=== PATIENT | male | born 1960 | race Caucasian/White ===

== ENCOUNTER 2021-02-12 04:49 | Observation (INO) ==
--- NOTE | 2021-01-10 13:52 | PAT Medication Instructions ---
Medication Instructions Date of Service January 10, 2021 Home Medications cholecalciferol (vitamin D3) [Vitamin D3] 50 mcg PO QAM magnesium oxide 400 mg PO QAM oxycodone-acetaminophen [Percocet] 2 tab PO TID pantoprazole 40 mg PO QAM tamsulosin [Flomax] 0.4 mg PO QAM warfarin [Coumadin] 5 mg PO UD ASK your prescriber and surgeon warfarin [Coumadin] 5 mg PO UD DO NOT take the morning of surgery cholecalciferol (vitamin D3) [Vitamin D3] 50 mcg PO QAM magnesium oxide 400 mg PO QAM Take morning of surgery With a small sip of water, OTHERWISE NOTHING TO EAT OR DRINK AFTER MIDNIGHT: pantoprazole 40 mg PO QAM tamsulosin [Flomax] 0.4 mg PO QAM oxycodone-acetaminophen [Percocet] 2 tab PO TID (okay to take up to 4 hours prior to surgery if needed) Take evening before surgery oxycodone-acetaminophen [Percocet] 2 tab PO TID Other Notes If you have any questions please call us at [phone] or [phone] or [phone] or [phone]
--- NOTE | 2021-01-14 12:22 | Anesthesiology Consultation ---
Date of Service January 14, 2021 Assessment & Plan (1) Encounter for pre-operative examination: COVID Status: As of 01/14 assessment, patient denies travel to endemic area, known exposure/sick contacts, or symptoms of COVID19. Patient instructed that they and their household members must follow strict social distancing guidelines, wear a mask in public and avoid travel/events/gatherings for 14 days prior to surgery. Preoperative COVID19 testing to be completed prior to surgery per surgeon's arrangements. Patient made aware to self-isolate as much as possible between COVID testing and surgery. Patient very skeptical of/nervous about SAB. Does have fusion of L3-L5, so may be difficult spinal. Discussed SAB vs GA. Will discuss further with MDA AM DOS. PT/INR/PT AM DOS Chart Review Chart Review: Acceptable Risk for Surgery and Patient seen in Pre Admission Testing Teaching & Discussion Instructed NPO after midnight before surgery, except medications with 15 cc of water. Medication instructions provided according to the PAT guidelines. Pt to contact PCP for coumadin instructions. History Surgery Operation Date: 02/12/21 14:15 Proposed Procedures p Left Total Knee Arthroplasty - Frank Cartagena DO Height/Weight Height: 5 ft 8.5 in Weight: 97.4 kg Allergies Allergy/AdvReac Type Severity Reaction Status Date / Time No Known Allergies Allergy Verified 01/09/21 09:19 Medications Home Medications Medication Instructions Recorded Confirmed Last Taken cholecalciferol (vitamin D3) 50 mcg PO QAM 01/09/21 01/09/21 Unknown [Vitamin D3] magnesium oxide 400 mg PO QAM 01/09/21 01/09/21 Unknown oxycodone-acetaminophen [Percocet] 2 tab PO TID 01/09/21 01/09/21 Unknown pantoprazole 40 mg PO QAM 01/09/21 01/09/21 Unknown tamsulosin [Flomax] 0.4 mg PO QAM 01/09/21 01/09/21 Unknown warfarin [Coumadin] 5 mg PO UD 01/09/21 01/09/21 Unknown Past Medical History Medical History (Updated 01/15/21 @ 11:34 by Carlos Kee) Antiphospholipid syndrome Anticoagulated with coumadin, dx'd at [facility]. Anxiety BPH (benign prostatic hyperplasia) Chronic obstructive pulmonary disease No inhaler use Degenerative disc disease GERD (gastroesophageal reflux disease) Hx of deep venous thrombosis LAST EPISODE "MANY YEARS AGO">DX WITH CLOTTING DISORDER Osteoarthritis Exercise / Class Metabolic Activity II 4-5 Yardwork/Stairs/Walk up hill (DENIES CP OR SOB WITH 1 FOS) Past Family History Family History Mother Family history of diabetes mellitus Father Family history of diabetes mellitus Brother Family history of diabetes mellitus Other No family history of adverse response to anesthesia Past Surgical History Surgical History Fusion of spine LUMBAR, L3-L5. H/O vascular surgery STENTS PLACED RT LEG YEARS AGO ([facility]) History of arthroscopy RT/LEFT KNEE *MULTIPLE TIMES History of cardiac cath OVER 20 YEARS AGO (NO STENTS) History of carpal tunnel release RT/LEFT History of colonoscopy History of esophagogastroduodenoscopy (EGD) History of nasal septoplasty History of tooth extraction History of total knee replacement RT Hx of shoulder surgery RT/LEFT S/P trigger finger release Past Anesthesia History No Hx of Anesthesia Complications and No Family Hx of Anesthesia Complications History of PONV No Hx of PONV and No Hx of Motion Sickness Social History Smoking Status: Current every day smoker tobacco type: cigarettes Smoking cigarettes per day: 20 CIG DAILY Do You Dip or Chew Tobacco: No Hx Alcohol Use: No Hx Substance Use: No substance use type: does not use Review of Systems Pt denies any recent chest pain, shortness of breath, palpitations, cough, fever, URI, or uncontrolled acid reflux (rare, diet-dependent). Physical Exam Vital Signs BP: 122/86 P: 92bpm SPO2: 97% RA T: 98.0 F R: 16 ENMT Mouth: + dentures (upper partial) and + dental restorations (gold crowns on all bottom teeth); no chipped teeth and no loose teeth Thyromental Distance: > or= 3.5 Finger Breadths Mallampati Class: II Neck normal visual inspection; neck extension not limited Respiratory normal respiratory effort Auscultation: + wheezes (B/L diffuse) Cardiovascular RRR, no murmur, no edema Vessels: no carotid bruit Testing Laboratory Results 01/14/21 12:45 01/14/21 12:45 PT 34.0 Seconds (9.0-12.0) H 01/14/21 12:45 INR 3.7 (0.9-1.1) H 01/14/21 12:45 APTT 45.9 Seconds (21.0-31.0) H* 01/14/21 12:45 Hemoglobin A1c 6.0 % (4.5-5.6) H 01/14/21 12:45 Urine Color Yellow 01/14/21 12:45 Urine Appearance Clear (Clear) 01/14/21 12:45 Urine pH 6.5 (4.5-7.5) 01/14/21 12:45 Ur Specific [place] 1.015 (1.000-1.030) 01/14/21 12:45 Urine Protein Negative (Negative) 01/14/21 12:45 Urine Glucose (UA) Negative (Negative) 01/14/21 12:45 Urine Ketones Negative (Negative) 01/14/21 12:45 Urine Nitrite Negative (Negative) 01/14/21 12:45 Ur Leukocyte Esterase Negative (Negative) 01/14/21 12:45 Urine WBC (Auto) 0 /hpf (0-5) 01/14/21 12:45 Urine RBC (Auto) 10-30 /hpf (0-4) H 01/14/21 12:45 U Hyaline Cast (Auto) 0 /lpf (0-5) 01/14/21 12:45 U Epithel Cells (Auto) 0-5 /lpf (0-5) 01/14/21 12:45 Urine Bacteria (Auto) Negative (Negative) 01/14/21 12:45 Blood Type AB Positive 01/14/21 12:45 Antibody Screen NEGATIVE 01/14/21 12:45 *Critical aPTT called to me from lab. PT/INR also supratherapeutic. PCP and surgeon's office notified. Electrocardiogram Date: 01/14/21 Sinus rhythm with sinus arrhythmia at 72 bpm. Incomplete right bundle branch block. *unconfirmed Chest X-Ray Date: 01/14/21 Findings: + NAD
--- NOTE | 2021-01-14 13:32 | XRay Report ---
XR chest Pre-admission PA/Lat CLINICAL HISTORY: Preoperative chest COMPARISON STUDY: No previous studies for comparison. FINDINGS: The cardiac and mediastinal contours are normal. There is no evidence of focal pulmonary co nsolidation. There is no evidence of failure. No pleural effusions are visualized.[ IMPRESSION: No active disease in the chest. ACT 112: Negative or not required by law. Electronically signed by: Ian Pfeiffer M.D. 01/14/2021 1:30 PM
[2021-01-14 15:00] LABS: Basophils # (auto) 0.02 K/uL (0-0.2); Basophils % (auto) 0.3 %; Eosinophils # (auto) 0.05 K/uL (0-0.5); Eosinophils % (auto) 0.8 %; Hematocrit (blood only) 44.1 % (42-52); Hemoglobin 14.5 g/dL (14.0-18.0); Lymphocytes # (auto) 1.12 K/uL (1.2-3.4); Lymphocytes % (auto) 18.1 %; Mean Corpuscular Hemoglobin 31.4 pg (25-34); Mean Corpuscular Hgb Conc 32.9 g/dL (32-36); Mean Corpuscular Volume 95.5 fL (80-100); Mean Platelet Volume 10.1 fL (7.4-10.4); Monocytes # (auto) 0.34 K/uL (0.11-0.59); Monocytes % (auto) 5.5 %; Neutrophils # (auto) 4.66 K/uL (1.4-6.5); Neutrophils % (auto) 75.3 %; Platelet Count 333 K/uL (130-400); RDW Coefficient of Variation 13.9 % (11.5-14.5); RDW Standard Deviation 48.4 fL (36.4-46.3); Red Blood Count 4.62 M/uL (4.7-6.1); White Blood Count 6.19 K/uL (4.8-10.8)
[2021-01-14 15:05] LABS: Appearance Urine Clear (Clear); Bacteria Urine Automated Negative (Negative); Bilirubin Urine Negative (Negative); Blood Urine 2+ (Negative); Cast Urine Automated 0 /lpf (0-5); Color Urine Yellow; Epithelial Cell Urine Auto 0-5 /lpf (0-5); Glucose Urine UA Negative (Negative); Ketones Urine Negative (Negative); Leukocyte Esterase Urine Negative (Negative); Nitrite Urine Negative (Negative); Protein Urine Negative (Negative); Specific Gravity Urine 1.015 (1.000-1.030); Urobilinogen Urine Negative (Negative); WBC Urine Automated 0 /hpf (0-5); pH Urine 6.5 (4.5-7.5)
[2021-01-14 15:07] LABS: Albumin Level 4.1 gm/dl (3.4-5.0); Calcium 9.4 mg/dl (8.5-10.1); Creatinine Clr Calc Pharmacy 82.8 ml/min; Est GFR (African American) 84.4; Est GFR (Non-African American) 72.8; Potassium 4.1 mmol/L (3.5-5.1)
[2021-01-14 15:34] LABS: INR 3.7 (0.9-1.1); Partial Thromboplastin Ratio 1.7
[2021-01-14 15:49] LABS: Partial Thromboplastin Time 45.9 Seconds (21.0-31.0)
[2021-01-15 07:11] LABS: Estimated Average Glucose 126 mg/dl
--- NOTE | 2021-01-15 23:04 | Electrocardiogram Report ---
Test Reason : Blood Pressure : / mmHG Vent. Rate : 072 BPM Atrial Rate : 072 BPM P-R Int : 128 ms QRS Dur : 102 ms QT Int : 378 ms P-R-T Axes : 069 084 070 degrees QTc Int : 413 ms Normal sinus rhythm with sinus arrhythmia Incomplete right bundle branch block Nonspecific ST abnormality No previous ECGs available Confirmed by Ryley Jasmine ([id number]) on 01/15/2021 11:03:54 PM Referred By: Frank Cartagena Confirmed By:Ryley Jasmine
--- NOTE | 2021-01-18 11:22 | History & Physical Report ---
Date of Service January 18, 2021 Date of Surgery: 02/12/21 Procedure: Left Total Knee Arthroplasty Assessment & Plan (1) Arthritis of knee, left: Further care discussed with patient and at this point in time has failed conservative measures and would like to proceed with a left total knee repl acement. Plan on discharge will be home with home health physical therapy. DVT prophalaxis with TEDs, SCDs and will also resume his Coumadin postop. Patient will have follow up appointment in our office two weeks post op for staple/suture removal and re-evaluation. Patient otherwise has no other questions or concerns. The risks and benefits have been discussed including, but not limited to, risk of infection, nerve injury, stiffness, loss of motion, failure to improve, etc. Reasonable outcomes and options of treatment were discussed. An explanation of appropriate alternatives to the procedure that may be advantageous were discussed and their risks and benefits, as well as the risks and benefits of not proceeding with treatment. I offered to answer any additional inquiries concerning the treatment involved. All the patient's questions were answered. The patient is agreeable, understanding of the treatment plan and alternatives, and wishes to proceed with the treatment plan. History of Present Illness Chief Complaint: left knee pain Primary Care Provider: Kameron Christianson Gaby Marques is a 60 year old male that complains of left knee pain, presents for pre-op evaluation prior to a left total knee replacement by Dr Cartagena at [facility]. He complains of pain, decreased range of motion and stiffness in his left knee. Currently the patient states that the symptoms are moderate-severe and is rated as 6/10. The pain is described as aching, sharp and throbbing. His symptoms are aggravated by ascending stairs, daily activities, first steps while awake walking. He is unable to take NSAIDs due to Coumadin use. he had prior left knee scope with partial meniscectomy approximately 6 years ago. Allergies Allergy/AdvReac Type Severity Reaction Status Date / Time No Known Allergies Allergy Verified 01/09/21 09:19 Home Medications Medication Instructions Recorded Confirmed Type cholecalciferol (vitamin D3) 50 mcg PO QAM 01/09/21 01/09/21 History [Vitamin D3] magnesium oxide 400 mg PO QAM 01/09/21 01/09/21 History oxycodone-acetaminophen [Percocet] 2 tab PO TID 01/09/21 01/09/21 History pantoprazole 40 mg PO QAM 01/09/21 01/09/21 History tamsulosin [Flomax] 0.4 mg PO QAM 01/09/21 01/09/21 History warfarin [Coumadin] 5 mg PO UD 01/09/21 01/09/21 History Past Med/Surg History Medical History Antiphospholipid syndrome Anticoagulated with coumadin, dx'd at [facility]. Anxiety BPH (benign prostatic hyperplasia) Chronic obstructive pulmonary disease No inhaler use Degenerative disc disease GERD (gastroesophageal reflux disease) Hx of deep venous thrombosis LAST EPISODE "MANY YEARS AGO">DX WITH CLOTTING DISORDER Osteoarthritis Surgical History Fusion of spine LUMBAR, L3-L5. H/O vascular surgery STENTS PLACED RT LEG YEARS AGO ([facility]) History of arthroscopy RT/LEFT KNEE *MULTIPLE TIMES History of cardiac cath OVER 20 YEARS AGO (NO STENTS) History of carpal tunnel release RT/LEFT History of colonoscopy History of esophagogastroduodenoscopy (EGD) History of nasal septoplasty History of tooth extraction History of total knee replacement RT Hx of shoulder surgery RT/LEFT S/P trigger finger release Family History Mother Family history of diabetes mellitus Father Family history of diabetes mellitus Brother Family history of diabetes mellitus Other No family history of adverse response to anesthesia Social History Smoking Status: Current every day smoker Cigarettes Per Day: 20 CIG DAILY; Second Hand Exposure: Yes; Do You Dip or Chew Tobacco: No; Tobacco Cessation Education Requested by Patient: No Hx Alcohol Use: No Hx Substance Use: No Preferred Language: Armenian Respiratory Director Required: No Beliefs That Will Affect Care: None Current Living Situation: Alone Feels Safe at Home: Yes Safety Concerns: Feels Safe At This Time Assistive Devices: Brace/Splint/Immobilizer, Cane and Glasses Assistive Devices Comment: READING GLASSES, PARTIAL UPPER PLATE Review of Systems Review of Systems: All systems reviewed & are unremarkable except as noted in HPI & below Constitutional: no fever, no chills and no sweats Respiratory: no cough and no dyspnea Cardiovascular: no chest pain, no dyspnea and no orthopnea Gastrointestinal: no abdominal pain, no nausea and no vomiting Musculoskeletal: as per Subjective / HPI Physical Exam Physical Exam: HT: 5ft 8in WT: 97.4kg Constitutional: WD/WN, vitals as above no acute distress Respiratory: normal respiratory effort, lungs clear to auscultation no respiratory distress, no labored breathing and does not use accessory muscles Cardiovascular: RRR, no murmur, no edema Gastrointestinal (Abdomen): normal bowel sounds, soft, nontender, no hepatosplenomegaly Musculoskeletal: Knee: + knee abnormal to inspection (Left Knee), + effusion (+1 effusion), + surgical incision (well healed portals), + limited ROM of knee (ROM 0/3/110), + knee ROM with crepitation, + joint line tenderness (medial joint line) and + Melvin's sign positive; no deformity, no skin erythema, no ecchymosis, no valgus laxity, no varus laxity, anterior drawer test negative, Galina's sign negative and pivot shift test negative Results & Data Results & Data ([facility]) Laboratory Results Laboratory Results WBC 6.19 K/uL (4.8-10.8) 01/14/21 12:45 RBC 4.62 M/uL (4.7-6.1) L 01/14/21 12:45 Hgb 14.5 g/dL (14.0-18.0) 01/14/21 12:45 Hct 44.1 % (42-52) 01/14/21 12:45 MCV 95.5 fL (80-100) 01/14/21 12:45 MCH 31.4 pg (25-34) 01/14/21 12:45 MCHC 32.9 g/dL (32-36) 01/14/21 12:45 RDW Std Deviation 48.4 fL (36.4-46.3) H 01/14/21 12:45 RDW Coeff of Malia 13.9 % (11.5-14.5) 01/14/21 12:45 Plt Count 333 K/uL (130-400) 01/14/21 12:45 MPV 10.1 fL (7.4-10.4) 01/14/21 12:45 Immature Gran % (Auto) 0.0 % 01/14/21 12:45 Neut % (Auto) 75.3 % 01/14/21 12:45 Lymph % (Auto) 18.1 % 01/14/21 12:45 Leslie % (Auto) 5.5 % 01/14/21 12:45 Eos % (Auto) 0.8 % 01/14/21 12:45 Baso % (Auto) 0.3 % 01/14/21 12:45 Neut # (Auto) 4.66 K/uL (1.4-6.5) 01/14/21 12:45 Lymph # (Auto) 1.12 K/uL (1.2-3.4) L 01/14/21 12:45 Leslie # (Auto) 0.34 K/uL (0.11-0.59) 01/14/21 12:45 Eos # (Auto) 0.05 K/uL (0-0.5) 01/14/21 12:45 Baso # (Auto) 0.02 K/uL (0-0.2) 01/14/21 12:45 Immature Gran # (Auto) 0.00 K/uL (0.00-0.02) 01/14/21 12:45 PT 34.0 Seconds (9.0-12.0) H 01/14/21 12:45 INR 3.7 (0.9-1.1) H 01/14/21 12:45 APTT 45.9 Seconds (21.0-31.0) H* 01/14/21 12:45 PTT Ratio 1.7 01/14/21 12:45 Sodium 140 mmol/L (136-145) 01/14/21 12:45 Potassium 4.1 mmol/L (3.5-5.1) 01/14/21 12:45 Chloride 105 mmol/L (98-107) 01/14/21 12:45 Carbon Dioxide 31 mmol/L (21-32) 01/14/21 12:45 Anion Gap 4.0 (3-11) 01/14/21 12:45 BUN 16 mg/dl (7-18) 01/14/21 12:45 Creatinine 1.11 mg/dl (0.6-1.4) 01/14/21 12:45 Est Cr Clr Drug Dosing 82.8 ml/min 01/14/21 12:45 Est GFR ( Amer) 84.4 01/14/21 12:45 Est GFR (Non-Af Amer) 72.8 01/14/21 12:45 BUN/Creatinine Ratio 14.0 (10-20) 01/14/21 12:45 Glucose 115 mg/dl (70-99) H 01/14/21 12:45 Estimat Average Glucose 126 mg/dl 01/14/21 12:45 Hemoglobin A1c 6.0 % (4.5-5.6) H 01/14/21 12:45 Calcium 9.4 mg/dl (8.5-10.1) 01/14/21 12:45 Albumin 4.1 gm/dl (3.4-5.0) 01/14/21 12:45 Urine Color Yellow 01/14/21 12:45 Urine Appearance Clear (Clear) 01/14/21 12:45 Urine pH 6.5 (4.5-7.5) 01/14/21 12:45 Ur Specific [place] 1.015 (1.000-1.030) 01/14/21 12:45 Urine Protein Negative (Negative) 01/14/21 12:45 Urine Glucose (UA) Negative (Negative) 01/14/21 12:45 Urine Ketones Negative (Negative) 01/14/21 12:45 Urine Blood 2+ (Negative) H 01/14/21 12:45 Urine Nitrite Negative (Negative) 01/14/21 12:45 Urine Bilirubin Negative (Negative) 01/14/21 12:45 Urine Urobilinogen Negative (Negative) 01/14/21 12:45 Ur Leukocyte Esterase Negative (Negative) 01/14/21 12:45 Urine WBC (Auto) 0 /hpf (0-5) 01/14/21 12:45 Urine RBC (Auto) 10-30 /hpf (0-4) H 01/14/21 12:45 U Hyaline Cast (Auto) 0 /lpf (0-5) 01/14/21 12:45 U Epithel Cells (Auto) 0-5 /lpf (0-5) 01/14/21 12:45 Urine Bacteria (Auto) Negative (Negative) 01/14/21 12:45 Blood Type AB Positive 01/14/21 12:45 Antibody Screen NEGATIVE 01/14/21 12:45 Impressions Chest X-Ray 01/14/21 08:25 XR chest Pre-admission PA/Lat CLINICAL HISTORY: Preoperative chest COMPARISON STUDY: No previous studies for comparison. FINDINGS: The cardiac and mediastinal contours are normal. There is no evidence of focal pulmonary consolidation. There is no evidence of failure. No pleural effusions are visualized.[ IMPRESSION: No active disease in the chest. ACT 112: Negative or not required by law. Electronically signed by: Ian Pfeiffer M.D. 01/14/2021 1:30 PM Diagnostic Findings Left Knee X-ray: left knee series confirm advanced degenerative changes to the left knee, greatest medial compartments and patellofemoral joint, showing joint space narrowing, osteophyte formation and subchondral sclerosis. no acute bony pathology noted.
[2021-02-12] MEDS ORDERED: ceFAZolin 2000MG 2,000 MG/15 ML SYR IV SCH (06:00)
[2021-02-12] MEDS ORDERED: TRANEXAMIC ACID 1,000 MG **IV Pre-op IV SCH (06:00)
[2021-02-12] MEDS ORDERED: dexAMETHasone 4 MG TAB PO SCH (06:00)
[2021-02-12] MEDS ORDERED: GABAPENTIN 600 MG DOSE PO SCH (06:00)
[2021-02-12] MEDS ORDERED: CeleBREX 200 MG CAP PO SCH (06:00)
[2021-02-12] MEDS ORDERED: ACETAMINOPHEN 500 MG TAB PO SCH (06:00)
[2021-02-12] MEDS ORDERED: TRANEXAMIC ACID 1,000 MG **IV Intra-op IV SCH (06:00)
[2021-02-12] MEDS ORDERED: LR 500ML BOLUS, THEN 15ML/HR IV SCH (06:00)
[2021-02-12] MEDS ORDERED: ROPIVACAINE 0.5% HCL/PF 150 MG, BUPIVACAINE 0.75% MPF 20 ML, EPINEPHrine 30MG/30ML (OR ... INSTIL SCH (06:00)
[2021-02-12] MEDS ORDERED: METOCLOPRAMIDE HCL 10 MG TABLET PO SCH (06:00)
[2021-02-12] MEDS ORDERED: FAMOTIDINE 20 MG TAB PO SCH (06:00)
[2021-02-12] MEDS ORDERED: BUPIVACAINE 0.25% 30 ML VIAL ONE (06:20)
[2021-02-12] MEDS ORDERED: BUPIVACAINE 0.5 % 5 MG/1 ML PF 10ML VIAL ONE ×2 (06:20→06:58)
[2021-02-12 06:23] LABS: INR 1.1 (0.9-1.1); Partial Thromboplastin Ratio 1.1; Partial Thromboplastin Time 27.7 Seconds (21.0-31.0); Prothrombin Time 10.9 Seconds (9.0-12.0)
[2021-02-12] MEDS ORDERED: LIDOCAINE 2%/EPINEPHRINE 1:200,000 20 ML SDV ONE (06:28)
[2021-02-12] MEDS ORDERED: PROPOFOL IV EMULSION 10 MG/ML 20 ML VIAL IV ONE ×2 (06:50→07:46)
[2021-02-12] MEDS ORDERED: LIDOCAINE 2% 2 ML VIAL/AMP(20MG/ML) INFIL ONE (06:50)
[2021-02-12] MEDS ORDERED: MIDAZOLAM HCL 1 MG/ML 2ML VIAL ONE ×3 (06:50→07:20)
[2021-02-12] MEDS ORDERED: ORTHO JOINT ANESTHETIC ONE (06:55)
[2021-02-12] MEDS ORDERED: ALBUT/IPRATROP 3MG/0.5MG NEB 3 ML VIAL NEB STA (07:06)
[2021-02-12] MEDS ORDERED: ATROPINE SULFATE 0.1 MG/ML 10ML SYR IV PRN (07:06)
[2021-02-12] MEDS ORDERED: ePHEDrine sulfate 50 MG/ML AMP IV PRN (07:06)
[2021-02-12] MEDS ORDERED: ONDANSETRON INJ 2 MG/ML 2 ML VIAL IV PRN ×2 (07:07→10:50)
[2021-02-12] MEDS ORDERED: fentaNYL citrate 100 MCG/2 ML VIAL IV PRN (07:07)
[2021-02-12] MEDS ORDERED: HYDROmorphone INJ 2 MG/ML SYR/VIAL IV PRN (07:07)
[2021-02-12] MEDS ORDERED: ALBUT/IPRATROP 3MG/0.5MG NEB 3 ML VIAL ONE (07:13)
[2021-02-12] MEDS ORDERED: ALBUTEROL HFA INHALER 8.5 GM ONE (07:14)
--- NOTE | 2021-02-12 07:23 | History & Physical Bridge Note ---
Date of Service February 12, 2021 History & Physical Bridge Note I have examined the patient, reviewed the History & Physical and in the interval since the performance of the History & Physical I have noted the following changes of clinical significance: no changes noted
--- NOTE | 2021-02-12 08:32 | Operative Report ---
Post Operative Report Pre & Post Diagnosis Operation Date: 02/12/21 07:15 Pre-Op Diagnosis: Unilateral Primary Osteoarthritis, Left Knee Post-Op Diagnosis: Unilateral Primary Osteoarthritis, Left Knee I identified the patient and participated in the time-out.: Yes Procedure Operation Date: 02/12/21 07:15 Actual Procedures p Left Total Knee Arthroplasty(Left) utilizing [employer] patient matched journey to total knee arthroplasty femur size 6 tibia size 4 polysize 13 patella size 32 oval patella- Frank Cartagena DO Surgeon Frank Cartagena DO [employer] Jair Estimated Blood Loss 5 Findings Consistent with Post-Op Diagnosis Patient presents with severe end-stage tricompartmental degenerative joint disease left knee varus alignment subchondral sclerosis marginal osteophytes [id number] eburnated bone moderate to large effusion Specimens Bone and cartilage Drains Medium bore Hemovac Anesthesia Type MAC Epidural Regional Complications none Disposition Accompanied Patient To Recovery: No Disposition: Recovery Room Indications Patient presents with severe end-stage tricompartmental degenerative joint disease [id number] eburnated bone failed attempted conservative management daily physical therapy anti-inflammatories relative rest activity modification corticosteroid injection viscosupplementation the above intraoperative findings noted time surgery. Description of Procedure After proper prepping and draping of the left lower extremity anterior midline incision was made over the region of the extensor extensor mechanism after meticulous hemostasis was obtained and maintained in subcutaneous tissues a medial parapatellar incision was made The patella was subluxed lateralward the medial lateral gutter were cleaned from any hypertrophic synovitis and scar tissue of the distal femoral block was placed and the distal femoral osteotomy cut was made subsequently the chamfers anterior and posterior osteotomy cuts were made utilizing the 4-in-1 block the tibia was subsequently subluxed anteriorward medial and ateral meniscal remnants were excised in their entirety remnants of the anterior and posterior cruciate ligaments were excised in their entirety excellent exposure of the proximal tibia was obtained the tibial osteotomy guide was placed on the proximal tibial osteotomy cut was made once again the knee was irrigated with copious amounts of sterile saline solution the patella was subsequently everted lateralward thickened scar tissue around the patella was removed the patella was subsequently cut utilizing a freehand technique and was drilled prepared for final preparation and placement of patella socially flexion-extension gaps were checked and the equal and symmetric trials were placed to the appropriate femoral and tibial trials with poly-spacer being placed for equal flexion and extension gaps and full range of motion including extension to 0 and flexion to 140 the trial components after having been taken to recovery range of motion was subsequently removed meticulous hemostasis was obtained and maintained subsequently a knee block injection of joint cocktail including ropivacaine 0.5% 150 mg. Bupivacaine 0.5% epinephrine 1-200,030 mL's toradol 30 mg dexamethasone 4 mg ketamine 10 mg clonidine 100 micrograms normal saline solution 30 mg was infiltrated into the soft tissues of the posterior knee medial lateral gutters and periosteal synovium special attention was paid to protect neurovascular structures at all times subsequently trial components having been removed the knee was irrigated with sterile saline solution. debris was removed the proximal tibia was subsequently prepared and was made ready for the placement of the tibial component tibial component was also cemented and tamped into position the femoral component was subsequently placed and cemented in the position the patellar component was subsequently cemented in position because hemostasis once again obtained and maintained wound having been thoroughly irrigated with debridement and debridement lavage was performed as well as a medial parapatellar incision closed with #1 Vicryl in interrupted fashion subcutaneous was closed with #2 Vicryl skin was closed with skin clips. PA-C was necessary for prepping and drapping as well as wound closure of deep fascia Sub cutaneous tissue and skin and was necessary for the case. A sterile compressive dressing was placed patient was taken to recovery in stable condition of report dictated by Osiel I attest to the content of the Intraoperative Record and any orders documented therein. Any exceptions are noted below. I attest to the content of the Intraoperative Record and any orders documented therein. Any exceptions are noted below.
--- NOTE | 2021-02-12 09:43 | XRay Report ---
XR knee LT 1 or 2V routine CLINICAL HISTORY: Postoperative evaluation. COMPARISON: None FINDINGS: Alignment of the total left knee arthroplasty is anatomic. No periprosthetic fracture or u nexpected radiopaque foreign body. There are surgical drains. IMPRESSION: Expected findings following total left knee arthroplasty. ACT 112: Negative or not required by law. Electronically signed by: Yonis Hedrick M.D. 02/12/2021 9:42 AM
[2021-02-12] MEDS ORDERED: bisacodyL 10 MG SUPP PR PRN (10:50)
[2021-02-12] MEDS ORDERED: NALOXONE HCL 0.4 MG/1 ML VIAL/CARP IV PRN (10:50)
[2021-02-12] MEDS ORDERED: diphenhydrAMINE Capsule 25 MG CAP PO PRN (10:50)
[2021-02-12] MEDS ORDERED: MAGNESIUM HYDROXIDE SUSP 30 ML UDC PO PRN (10:50)
[2021-02-12] MEDS ORDERED: METOCLOPRAMIDE HCL INJ 5 MG/ML 2 ML VIAL IV PRN (10:50)
--- NOTE | 2021-02-12 11:32 | Anesthesiology Progress Note ---
Date of Service February 12, 2021 Anesthesia Post Procedure Vital Signs Vital Signs: Temp Pulse Pulse Pulse Resp BP BP 02/12/21 11:18 77 19 105/69 02/12/21 10:40 36.7 C 70 18 96/69 L 02/12/21 10:05 36.4 C L 72 15 109/63 02/12/21 09:55 64 17 112/62 02/12/21 09:45 56 L 12 94/61 L 02/12/21 09:35 57 L 17 99/60 L 02/12/21 09:25 63 18 95/62 L 02/12/21 09:15 63 13 95/60 L 02/12/21 09:09 36.4 C L 73 15 95/59 L 02/12/21 05:26 36.7 C 71 20 142/81 H Pulse Ox 02/12/21 11:18 97 02/12/21 10:40 92 02/12/21 10:05 95 02/12/21 09:55 99 02/12/21 09:45 99 02/12/21 09:35 99 02/12/21 09:25 98 02/12/21 09:15 98 02/12/21 09:09 98 02/12/21 05:26 98 Pain Intensity Left Knee: Pain Intensity: 5 Transfer of Care Handoff Completed per policy Notes Mental Status: alert / awake / arousable and participated in evaluation Nausea / Vomiting: adequately controlled Pain: adequately controlled Airway Patency, RR, SpO2: stable & adequate BP & HR: stable & adequate Hydration State: stable & adequate Neuraxial Anesthesia: was administered and sensory block is resolving Anesthetic Complications: no major complications apparent and Pt Satisfied with anesthetic care
[2021-02-12] MEDS: SODIUM CHLORIDE 0.9% 1000ML 1,000 ML IV SCH ×2 (11:42→22:41)
[2021-02-12] MEDS: ACETAMINOPHEN 500 MG TAB PO SCH ×2 (13:40→21:07)
[2021-02-12] MEDS ORDERED: ORTHO WARFARIN NOMOGRAM SCH (14:00)
[2021-02-12] MEDS ORDERED: WARFARIN SOD 5 MG TAB PO ONE (16:00)
[2021-02-12] MEDS: ceFAZolin 2000MG 2,000 MG/15 ML SYR IV SCH ×2 (16:24→22:41)
[2021-02-12] MEDS ORDERED: SENNA 8.6 MG TAB PO SCH (21:00)
[2021-02-12] MEDS: DOCUSATE SODIUM 100 MG CAP PO SCH (21:07)
[2021-02-12] MEDS: oxyCODONE HCL IR 5 MG TAB (IMMEDIATE RELEASE) PO PRN (21:23)
[2021-02-12] MEDS: HYDROmorphone INJ 1 MG/ML SYRINGE IV PRN (22:44)
[2021-02-13] MEDS: oxyCODONE HCL IR 5 MG TAB (IMMEDIATE RELEASE) PO PRN ×2 (05:15→11:05)
[2021-02-13] MEDS: ACETAMINOPHEN 500 MG TAB PO SCH (05:15)
[2021-02-13] MEDS: HYDROmorphone INJ 1 MG/ML SYRINGE IV PRN (06:55)
[2021-02-13 07:40] LABS: Hematocrit (blood only) 32.7 % (42-52); Hemoglobin 10.6 g/dL (14.0-18.0); Mean Corpuscular Hemoglobin 30.8 pg (25-34); Mean Corpuscular Hgb Conc 32.4 g/dL (32-36); Mean Corpuscular Volume 95.1 fL (80-100); Mean Platelet Volume 9.6 fL (7.4-10.4); Platelet Count 190 K/uL (130-400); RDW Coefficient of Variation 13.9 % (11.5-14.5); RDW Standard Deviation 48.2 fL (36.4-46.3); Red Blood Count 3.44 M/uL (4.7-6.1); White Blood Count 14.32 K/uL (4.8-10.8)
[2021-02-13] MEDS: DOCUSATE SODIUM 100 MG CAP PO SCH ×2 (07:51→07:52)
[2021-02-13 08:19] LABS: BUN Creatinine Ratio 17.6 (10-20); Calcium 8.3 mg/dl (8.5-10.1); Creatinine Clr Calc Pharmacy 93.7 ml/min; Est GFR (African American) 100.6 ml/min; Est GFR (Non-African American) 86.8 ml/min; Potassium 4.5 mmol/L (3.5-5.1)
[2021-02-13] MEDS ORDERED: TAMSULOSIN HCL 0.4 MG CAP PO SCH (09:00)
[2021-02-13] MEDS ORDERED: CHOLECALCIFEROL 1,000 UNITS 25 MCG TAB PO SCH (09:00)
[2021-02-13] MEDS ORDERED: MULTIVITAMIN TAB PO SCH (09:00)
[2021-02-13] MEDS ORDERED: MAGNESIUM OXIDE 400 MG TAB PO SCH (09:00)
--- NOTE | 2021-02-13 09:41 | Orthopedic Progress Note ---
Date of Service February 13, 2021 Assessment & Plan (1) Arthritis of knee, left: POD 1 s/p L TKA PT/OT protocols. WBAT. DVT prophylaxis - Warfarin, SCD's, JIM's Pain management as written. Pt states he will be getting his pain medications from his Pain Management team once discharged. DC planning - Plan for services upon DC. Admission and Anticipated Discharge Date Admission Date: February 12, 2021 Subjective POD 1 Pt sitting up at bedside. No complaints this AM. States he is having some pain in the knee but it is much better than the arthritis pain he was having preop. Pt was ambulating in the room and had been up ambulating in the jarvis last night. Denies SOB, CP, LH. Pt is hoping to go home today. Physical Exam Physical Exam: Dressings C/D/I. Calves soft, NT. NV intact. Pt has good DF/PF of the left foot. HV drainage down to 75ml from previous shift. Results & Data ([facility]) Vital Signs (Past 12 Hours) Vital Signs Temp Pulse Resp BP Pulse Ox 02/13/21 07:04 36.5 C 67 16 112/70 96 02/13/21 03:11 36.7 C 79 20 98/64 L 96 02/12/21 22:50 36.6 C 93 H 20 104/67 94 Laboratory Results Laboratory Results WBC 14.32 K/uL (4.8-10.8) H 02/13/21 07:11 RBC 3.44 M/uL (4.7-6.1) L 02/13/21 07:11 Hgb 10.6 g/dL (14.0-18.0) L 02/13/21 07:11 Hct 32.7 % (42-52) L 02/13/21 07:11 MCV 95.1 fL (80-100) 02/13/21 07:11 MCH 30.8 pg (25-34) 02/13/21 07:11 MCHC 32.4 g/dL (32-36) 02/13/21 07:11 RDW Std Deviation 48.2 fL (36.4-46.3) H 02/13/21 07:11 RDW Coeff of Malia 13.9 % (11.5-14.5) 02/13/21 07:11 Plt Count 190 K/uL (130-400) 02/13/21 07:11 MPV 9.6 fL (7.4-10.4) 02/13/21 07:11 Immature Gran % (Auto) 0.0 % 01/14/21 12:45 Neut % (Auto) 75.3 % 01/14/21 12:45 Lymph % (Auto) 18.1 % 01/14/21 12:45 [place] % (Auto) 5.5 % 01/14/21 12:45 Eos % (Auto) 0.8 % 01/14/21 12:45 Baso % (Auto) 0.3 % 01/14/21 12:45 Neut # (Auto) 4.66 K/uL (1.4-6.5) 01/14/21 12:45 Lymph # (Auto) 1.12 K/uL (1.2-3.4) L 01/14/21 12:45 [place] # (Auto) 0.34 K/uL (0.11-0.59) 01/14/21 12:45 Eos # (Auto) 0.05 K/uL (0-0.5) 01/14/21 12:45 Baso # (Auto) 0.02 K/uL (0-0.2) 01/14/21 12:45 Immature Gran # (Auto) 0.00 K/uL (0.00-0.02) 01/14/21 12:45 PT 10.9 Seconds (9.0-12.0) 02/12/21 05:35 INR 1.1 (0.9-1.1) 02/12/21 05:35 APTT 27.7 Seconds (21.0-31.0) 02/12/21 05:35 PTT Ratio 1.1 02/12/21 05:35 Sodium 140 mmol/L (136-145) 02/13/21 07:11 Potassium 4.5 mmol/L (3.5-5.1) 02/13/21 07:11 Chloride 108 mmol/L (98-107) H 02/13/21 07:11 Carbon Dioxide 29 mmol/L (21-32) 02/13/21 07:11 Anion Gap 3.0 (3-11) 02/13/21 07:11 BUN 17 mg/dl (7-18) 02/13/21 07:11 Creatinine 0.96 mg/dl (0.6-1.4) 02/13/21 07:11 Est Cr Clr Drug Dosing 93.7 ml/min 02/13/21 07:11 Est GFR ( Amer) 100.6 ml/min 02/13/21 07:11 Est GFR (Non-Af Amer) 86.8 ml/min 02/13/21 07:11 BUN/Creatinine Ratio 17.6 (10-20) 02/13/21 07:11 Glucose 105 mg/dl (70-99) H 02/13/21 07:11 Estimat Average Glucose 126 mg/dl 01/14/21 12:45 Hemoglobin A1c 6.0 % (4.5-5.6) H 01/14/21 12:45 Calcium 8.3 mg/dl (8.5-10.1) L 02/13/21 07:11 Albumin 4.1 gm/dl (3.4-5.0) 01/14/21 12:45 Urine Color Yellow 01/14/21 12:45 Urine Appearance Clear (Clear) 01/14/21 12:45 Urine pH 6.5 (4.5-7.5) 01/14/21 12:45 Ur Specific [place] 1.015 (1.000-1.030) 01/14/21 12:45 Urine Protein Negative (Negative) 01/14/21 12:45 Urine Glucose (UA) Negative (Negative) 01/14/21 12:45 Urine Ketones Negative (Negative) 01/14/21 12:45 Urine Blood 2+ (Negative) H 01/14/21 12:45 Urine Nitrite Negative (Negative) 01/14/21 12:45 Urine Bilirubin Negative (Negative) 01/14/21 12:45 Urine Urobilinogen Negative (Negative) 01/14/21 12:45 Ur Leukocyte Esterase Negative (Negative) 01/14/21 12:45 Urine WBC (Auto) 0 /hpf (0-5) 01/14/21 12:45 Urine RBC (Auto) 10-30 /hpf (0-4) H 01/14/21 12:45 U Hyaline Cast (Auto) 0 /lpf (0-5) 01/14/21 12:45 U Epithel Cells (Auto) 0-5 /lpf (0-5) 01/14/21 12:45 Urine Bacteria (Auto) Negative (Negative) 01/14/21 12:45 SARS-CoV-2, RNA, NAAT NEGATIVE (NEGATIVE) 02/12/21 Unknown Blood Type AB Positive 01/14/21 12:45 Antibody Screen NEGATIVE 01/14/21 12:45 Impressions Knee X-Ray 02/12/21 09:16 XR knee LT 1 or 2V routine CLINICAL HISTORY: Postoperative evaluation. COMPARISON: None FINDINGS: Alignment of the total left knee arthroplasty is anatomic. No periprosthetic fracture or unexpected radiopaque foreign body. There are surgical drains. IMPRESSION: Expected findings following total left knee arthroplasty. ACT 112: Negative or not required by law. Electronically signed by: Yonis Hedrick M.D. 02/12/2021 9:42 AM
--- NOTE | 2021-02-13 17:55 | Discharge Summary ---
Date of Service date of discharge: February 13, 2021 date of admission: 02-12-21 Admission HPI Per Admitting Provider Jerald is a 60 year old male that complains of left knee pain, presents for pre- op evaluation prior to a left total knee replacement by Dr Cartagena at [facility]. He complains of pain, decreased range of motion and stiffness in his left knee. Currently the patient states that the symptoms are moderate-severe and is rated as 6/10. The pain is described as aching, sharp and throbbing. His symptoms are aggravated by ascending stairs, daily activities, first steps while awake walking. He is unable to take NSAIDs due to Coumadin use. he had prior left knee scope with partial meniscectomy approximately 6 years ago. Principal Diagnosis left knee arthritis Discharge Exam Constitutional WD/WN, vitals as above Musculoskeletal left knee: NVDI, calf SNT, negative amy sign. DP palpable, able to wiggle toes/ankle movement without difficulty. dressing clean dry and intact. expected post-operative bruising noted. Discharge Data Allergies Allergy/AdvReac Type Severity Reaction Status Date / Time No Known Allergies Allergy Verified 02/12/21 05:47 Procedures Performed Operation Date: 02/12/21 07:15 Actual Procedures p Left Total Knee Arthroplasty(Left) - Frank Cartagena, Ordered Studies 02/12/21 05:00 US - OR guided needle placemen Routine Hospital Course (1) Arthritis of knee, left: POD 1 s/p L TKA PT/OT protocols. WBAT. DVT prophylaxis - Warfarin, SCD's, JIM's Pain management as written. Pt states he will be getting his pain medications from his Pain Management team once discharged. DC planning - Plan for services upon DC. Total Time Total Time Spent Total Time Spent (In Minutes): 20 Discharge Plan Discharge Items Patient Disposition: Home - Home Health Services Reason For Visit: Unilateral Primary Osteoarthritis, Left Knee Discharge Diagnosis: s/p left total knee replacement Activity: Per Instructions section Weightbearing: Left weightbearing Weightbearing Comment: as tolerated with walker Non-emergency contact: Surgeon Call non-emergency contact if: you have any medication questions, your temperature is above 101, your wound has increased redness, your wound has increased drainage and your wound pain has increased Follow-up/Referrals: [facility] [Outside] (Per surgeon's office) Kameron Griffin D.O. [Primary Care Provider] - Diet: Regular Addtl Attending Provider Instructions: ACTIVITY RECOMMENDATIONS: SELF CARE INSTRUCTIONS AFTER TOTAL KNEE REPLACEMENT A. You may need to continue a physical therapy program after discharge from the hospital. There are several options available to you. Your doctor will assist you in selecting the best one for you. 1. An out-patient facility 2 to 3 times a week for therapy or home therapy. 2. Continue working on all exercises taught to you in the hospital. Your goals should be to increase bending of your knee to 90 degrees and beyond and to fully straighten your knee. B. You may progress at your own pace from walking with a walker or crutches to a cane; then to no assistive devices. C. Make walking a part of your daily routine. Be up as much as comfortable with rest periods throughout the day. Rest with leg elevation is very important. Use the ice wrap frequently for the first 3-4 weeks. D. There are no restrictions on activities. You may ride in a car, shop, participate in social media marketing analyst and all social activities. E. Wear the long elastic stockings (JIM hose) 20 hours a day for 2 weeks after surgery. They can be removed several times a day for laundering and for a bath. F. You may shower, no tub baths until cleared by your doctor. SPECIAL CARE INSTRUCTIONS: VERY IMPORTANT TO READ AND REVIEW A. There are a few signs you need to watch for after you are home. Call [facility] if you notice any of the followin. Increased severe knee pain. Some pain is expected especially when you exercise. 2. Increased swelling in your leg or knee; pain or swelling of the calf muscle in either lower leg. 3. Any fluid drainage from the incision. 4. Shortness of breath or chest pain. B. Please call [facility] at if you have any concerns or questions about your operation or recovery. The doctor or his nurse will return your call promptly. C. You must take antibiotics before dental work, bladder, bowel or other surgery. Your doctor will provide you with a permanent care to carry describing this precaution. IMPORTANT: * REMEMBER TO TAKE ASPIRIN, 81 MG, TWICE DAILY FOR 4 WEEKS UNLESS OTHERWISE DIRECTED. THIS IS YOUR BLOOD THINNER. * HIGH RISK PATIENTS MAY BE PRESCRIBED A STRONGER BLOOD THINNER. THIS WILL BE PROVIDED AT DISCHARGE. * CALL IF INCREASED PAIN, REDNESS, DRAINAGE OR FEVER GREATER THAT 101. * WEAR JIM HOSE 20 HOURS PER DAY FOR 2 WEEKS. * DERMABOND Prineo- This is a mesh tape dressing that is covered with glue. It should remain in place until the incision is properly healed, usually 10-14 days. This dressing is designed to naturally slough off. You may trim the excess mesh tape as it peels off. Incision may be briefly wet in a shower. Dry immediately by blotting with a clean, dry towel. Do not bath or swim until instructed by your doctor. Do not scratch, rub, or pick at the dressing. Do not apply any topical ointments or lotions until dressing is completely removed and/or instructed by your doctor. There may be a small piece of suture material at one end of your incision. Do not pull or trim this. If it is bothersome or catching on clothing, you may cover it with a band-aid. IF INCISION IS LEAKING THROUGH DRESSING, CALL THE OFFICE . FOLLOW UP VISIT: If appointment is not already scheduled: Please call [facility] to make a follow-up appointment for 2 weeks after your surgery at . Stand-Alone Forms: My [facility] [employer], Opioid Pain Management, Work/School Release, Smoking Cessation Medications and DC Order Prescriptions: New polyethylene glycol 3350 [Miralax] 17 gram powder in packet 17 g PO DAILY PRN (Reason: constipation) Qty: 5 RF: 0 cefadroxil 500 mg capsule 500 mg PO BID Qty: 28 RF: 1 Continued oxycodone-acetaminophen [Percocet] 10-325 mg Tablet 2 tab PO TID RF: 0 tamsulosin [Flomax] 0.4 mg Capsule 0.4 mg PO QAM RF: 0 pantoprazole 40 mg Tablet,Delayed Release (Dr/Ec) 40 mg PO QAM RF: 0 warfarin 5 mg Tablet 5 mg PO UD RF: 0 cholecalciferol (vitamin D3) [Vitamin D3] 50 mcg (2,000 unit) Tablet 50 mcg PO QAM RF: 0 magnesium oxide 400 mg magnesium Capsule 400 mg PO QAM RF: 0 Discharge Orders: Discharge Order (Routine); Ordered 02/13/21 Ordered By: Rinku Pemberton/Other Patient Handouts: What to Know When TakingWarfarin, 5 Steps for Eating Healthier, A1C Admission Data Admit Date/Time: 02/12/21 09:17 Attending Provider: Frank Cartagnea Admit Provider: Frank Cartagena Primary Care Provider: Kameron Griffin Other Providers: [facility] Other Interventions: Discharge Summary Assessment (RN) Last Done: 02/13/21 11:12
== END 2021-02-13 13:13 | disposition home health service (06) ==
LOC: ASU 04:49 → 3E 04:49